=== PATIENT | female | born 2000 | race Asian ===

== ENCOUNTER 2021-09-28 13:47 | Outpatient (CLI) | payer BC | END 2021-09-28 13:48 | disposition home or self-care (01) | LOC: BICRAD 13:47 | PROVIDERS: ATTEND Specialist | DX: M47.816 Spondylosis without myelopathy or radiculopathy, lumbar region (principal); M47.812 Spondylosis without myelopathy or radiculopathy, cervical region | CPT/HCPCS: 72050; 72110 ==